=== PATIENT | female | born 1985 | race Hispanic/Latino ===

== ENCOUNTER 2018-07-29 12:42 | Emergency (ER) | payer BC ==
[2018-07-29] MEDS ORDERED: MORPHINE IV ONE (13:53)
[2018-07-29] MEDS ORDERED: ZOFRAN IV ONE (13:53)
--- NOTE | 2018-07-29 13:53 | Emergency Department Report ---
HPI - General Chief Complaint: Headache Time Seen by Provider: 07/29/18 13:08 - HPI HPI: 33-year-old female presents to the emergency department with a six-day history of a headache that she says could be migraines. She says she does have a history of migraines but is not on any medication for it and has been a while since she had a migraine headache. It started off as a throbbing left-sided headache but now has moved to the right. She tried some [id number] Excedrin without much relief. She has a history of preeclampsia, migraines and pseudotumor cerebri. Her primary care physician is a Dr. Bridgette Neri. She does not have a neurologist. She denies any fever, vision change, slurred speech or any neurological deficits but does have some nausea. ED Past Medical Hx - Past Medical History Previous Medical History?: Yes Additional medical history: HTN during . migraines - Surgical History Past Surgical History?: No - Social History Smoking Status: Current Every Day Smoker ED Review of Systems ROS: Stated complaint: MIGRANE x6 DAYS Other details as noted in HPI Comment: All other systems reviewed and negative Constitutional: denies: chills, fever Eyes: denies: eye pain, vision change ENT: denies: ear pain, throat pain Respiratory: denies: cough, shortness of breath Cardiovascular: denies: chest pain, palpitations Gastrointestinal: nausea. denies: abdominal pain, vomiting Genitourinary: denies: dysuria, discharge Musculoskeletal: denies: back pain, arthralgia Skin: denies: rash, lesions Neurological: headache. denies: weakness, numbness Physical Exam - Physical Exam Vital Signs: Vital Signs 07/29/18 12:49 Pulse Rate 98 H Respiratory 20 Rate Blood Pressure 140/87 O2 Sat by Pulse 97 Oximetry Physical Exam: GENERAL: The patient is well-developed well-nourished. HENT: Normocephalic. Atraumatic. Patient has moist mucous membranes. EYES: Extraocular motions are intact. Pupils equal reactive to light bilaterally. No nystagmus. NECK: Supple. Trachea is midline. CHEST/LUNGS: Clear to auscultation. There is no respiratory distress noted. HEART/CARDIOVASCULAR: Regular. There is no tachycardia. There is no murmur. ABDOMEN: Abdomen is soft, nontender. Patient has normal bowel sounds. Obese habitus. SKIN: Skin is warm and dry. NEURO: The patient is awake, alert, and oriented. The patient is cooperative. The patient has no focal neurologic deficits. The patient has normal speech. Cranial nerves II through XII grossly intact. MUSCULOSKELETAL: There is no tenderness or deformity. There is no limitation range of motion. There is no evidence of acute injury. ED Course Vital Signs 07/29/18 12:49 Pulse Rate 98 H Respiratory 20 Rate Blood Pressure 140/87 O2 Sat by Pulse 97 Oximetry ED Medical Decision Making - Lab Data Result diagrams: 07/29/18 13:45 07/29/18 13:45 - Radiology Data Radiology results: report reviewed CT of the head does not show any acute intracranial process including no ischemia, shift, mass, bleeding or skull fracture. - Medical Decision Making Patient presents with a six-day history of a headache but also history of migraines. On examination she does not have any focal, motor or sensory def icits. Cranial nerves are intact. Labs are unremarkable. CT scan of the head did not show any bleed, shift, mass, ischemia, or any other acute process. She was given a dose of pain medication with great improvement in her symptoms. She was seen ambulatory in the emergency department prior to discharge. Patient will be given a referral for primary care and neurology. She will return to the ER with any worsening of her symptoms or any acute distress. - Differential Diagnosis tension headache, migraine, subarachnoid Critical Care Time: No Critical care attestation.: If time is entered above; I have spent that time in minutes in the direct care of this critically ill patient, excluding procedure time. ED Disposition Clinical Impression: Headache Qualifiers: Headache type: unspecified Headache chronicity pattern: unspecified pattern Intractability: not intractable Qualified Code(s): R51 - Headache Disposition: DC-01 TO HOME OR SELFCARE Is pt being admited?: No Condition: Stable Instructions: Migraine Headache (ED), Acute Headache (ED) Additional Instructions: Please follow-up with your primary care physician in the next few days. I am giving you a few different local neurologists. Return to emergency department with any return or worsening of her symptoms, if any acute distress. Referrals: DIMA GUNN MD [Staff Physician] - 2-3 Days ADITHYA NUÑEZ MD [Staff Physician] - 2-3 Days Time of Disposition: 16:35
[2018-07-29 14:04] LABS: Basophils # (Auto) 0.1 K/mm3 (0.0-0.1); Basophils % (Auto) 0.9 % (0.0-1.8); Eosinophils # (Auto) 0.5 K/mm3 (0.0-0.4); Hematocrit 44.5 % (30.3-42.9); Hemoglobin 14.7 gm/dl (10.1-14.3); Lymphocytes # (Auto) 2.2 K/mm3 (1.2-5.4); Lymphocytes % (Auto) 23.6 % (13.4-35.0); Mean Corpuscular HGB Conc 33 % (30-34); Mean Corpuscular Volume 87 fl (79-97); Monocytes # (Auto) 0.7 K/mm3 (0.0-0.8); Monocytes % (Auto) 7.2 % (0.0-7.3); Platelet Count 289 K/mm3 (140-440); Red Blood Count 5.13 M/mm3 (3.65-5.03); Red Cell Distribution Width 13.8 % (13.2-15.2)
[2018-07-29 14:35] LABS: Erythrocyte Sedimentation Rate 35 mm/Hr (0-20)
[2018-07-29 14:44] LABS: BUN/Creatinine Ratio 10; Blood Urea Nitrogen 8 mg/dL (7-17); Calcium 9.7 mg/dL (8.4-10.2); Hemolysis Index 14
--- NOTE | 2018-07-29 16:21 | Cat Scan Report ---
PROCEDURE: CT HEAD/BRAIN WO CON TECHNIQUE: CT examination of the head without IV contrast HISTORY: headache COMPARISONS: None FINDINGS: No acute air-fluid level visualized in the included air-filled sinuses. Bone windows demonstrate no acute fracture. The brain is without mass, mass effect, hemorrhage, or acute infarct. There is no extra-axial intracranial bleed, brain bleed, or midline shift. The ventricles and sulci are age-appropriate. IMPRESSION: No acute CVA, intracranial bleed, or brain mass This document is electronically signed by Bill Hernandez MD., Jul 29 2018 04:19:04 PM ET
[2018-07-29 16:50] VITALS: BP 104/56
== END 2018-07-29 16:50 | disposition home or self-care (01) ==
LOC: ED 12:42
DX: G43.909 Migraine, unspecified, not intractable, without status migrainosus (principal); F17.200 Nicotine dependence, unspecified, uncomplicated
CPT/HCPCS: 36415; 70450; 80048; 84703; 85025; 85652; 96374; 96375; 99285; J2270; J2405